=== PATIENT | male | born 1975 | race Caucasian/White ===

== ENCOUNTER 2021-10-27 16:19 | Emergency (ER) | payer BC, SELFPAY ==
[2021-10-27 16:20] VITALS: BP 174/117; PULSE 93; RESP 16; TEMP 36.1; O2SAT 98; BMI 38.7
--- NOTE | 2021-10-27 16:27 | NURSING ---
NO OLD EKGS
--- NOTE | 2021-10-27 16:59 | EKG12_ITS ---
Test Reason : CP Blood Pressure : / mmHG Vent. Rate : 093 BPM Atrial Rate : 093 BPM P-R Int : 150 ms QRS Dur : 082 ms QT Int : 350 ms P-R-T Axes : 016 025 136 degrees QTc Int : 435 ms Normal sinus rhythm Normal ECG Confirmed by BRANDO CAMPOS, KIM ([id number]), editor publications [employer] ([id number]) on 10/29/2021 8:23:21 AM Referred By: VIRGINIE Confirmed By:REJI MICHAELS MD
[2021-10-27] MEDS: Aspirin 81 MG TAB.CHEW 324 MG PO (17:06)
--- NOTE | 2021-10-27 17:25 | RAD_ITS ---
STUDY: AP PORTABLE UPRIGHT CHEST OF 1725 HOURS ON 10/27/2021 REASON FOR EXAM: 45-year-old male with chest pain. TECHNIQUE: A single view portable AP upright chest x-ray was performed per protocol. COMPARISON: 11/21/2012. FINDINGS: Normal osseous structures. Left ventricular cardiac configuration without cardiomegaly or heart failure. No pulmonary infiltrates, atelectasis, effusion, pulmonary mass lesions. Normal osseous structures. No interval change since previous study of 11/21/2012. RAD/Chest 1 View (Portable) IMPRESSION: 1. No interval change since previous study of 11/12/1912. 2. Left ventricular cardiac configuration without cardiomegaly or heart failure. 3. No other evidence of active cardiopulmonary disease. Electronically Signed: Segun Roy MD at 17:52 EDT ,
[2021-10-27 17:26] LABS: Absolute Lymphocyte Count 2.64 X10^3/uL (0.83-4.51); Absolute Neutrophil Count 8.6 X10^3/uL (2.0-7.7); Basophil# 0.07 X10^3/uL; Basophil% 0.6 % (0-1); Eosinophil# 0.24 X10^3/uL; Eosinophils% 1.9 % (0-5); Hemoglobin 17.6 g/dL (13.0-16.5); Lymphocyte # 2.64 X10^3/ul (0.83-4.51); Lymphocyte % 21.3 % (19-41); Mean Corp Hgb Conc 34.5 g/dL (32-36); Mean Corpuscular Hgb 29.5 pg (27.0-32.0); Mean Corpuscular Volume 85.6 fL (80-94); Monocyte# 0.83 X10^3/uL; Monocyte% 6.7 % (0-10); NRBC Flagged by Analyzer 0 % (0-5); Neutrophil # 8.57 X10^3/uL (2.7-7.7); Platelet Count 252 K/mm3 (150-450); RBC Distribution Width CV 14.2 % (11.6-14.6); RBC Distribution Width SD 44.2 fl (35.1-43.9); Red Blood Count 5.96 M/mm3 (4.6-6.2); White Blood Count 12.4 K/mm3 (4.4-11.0)
[2021-10-27 17:37] VITALS: BP 156/114; PULSE 93
[2021-10-27] MEDS: Nitroglycerin SL (ED/IMG/CATH) 0.4 MG TABLET SL (17:37)
[2021-10-27 17:43] LABS: Anion Gap 4 (5-15); BUN 10 mg/dL (7-18); BUN/Creat Ratio 8.6 RATIO (10-20); Calcium,Total 9.1 mg/dL (8.5-10.1); Chloride 110 mmol/L (98-107); Creatinine, Serum 1.16 mg/dL (0.70-1.30); EST Glomerular Filtration Rate 72 mL/min (>60); Est Glom Filt Rate - Afr Amer 88 mL/min (>60); Estimated Creatinine Clearance 81.26 ml/min; Glucose 104 mg/dL (74-106); Potassium 3.5 mmol/L (3.5-5.1); Sodium Level 142 mmol/L (136-145); Troponin-I HS (w/2H Reflex) 5 pg/mL (3.0-78.0)
--- NOTE | 2021-10-27 17:56 | ED.VIS.CHEST ---
HPI History of Present Illness Chief Complaint: Chest Pain Informant: patient Onset/Context/Timing Onset: Days (2-3) Activity at onset: gradual and onset Timing: Continuous Quality: Positive for Burning Location: Left Chest Current Severity: Moderate Maximum Severity: Moderate Worsened By: Exertion and - (No changes with position changes); Not Worsened By Breathing Relieved By: Nothing Associated Symptoms: Positive for Dyspnea, Palpitations (Feels like heart racing at times) and - (Left shoulder and arm burning/discomfort); Negative for Nausea, Vomiting, Diaphoresis, Cough, Fever and Lightheadedness Narrative Narrative: Patient states he felt like he was having heartburn 2 or 3 days ago, the symptoms have persisted and gotten worse and he has developed a burning discomfort in his left shoulder and upper arm, in addition to trouble breathing even when he is at rest. He noticed this felt worse today while he was sitting at work and so he presents for evaluation out of concern. He does not take medications for blood pressure or anything else other than gout when he has a flareup. He sees his doctor regularly, his last visit was about 4 months ago, sometimes at pressures are elevated a little, but he has never required any medications for it. He denies any history of DVT, PE, leg pain or swelling recently, recent immobilization, long travel, or hospitalization/surgery. Denies any history of heart disease that he knows of. Patient had a negative stress echocardiogram 10 years ago. CVD Risk Factors: Negative for Hypertension, Diabetes, Hypercholesterolemia, Family History 1' </=55 and Smoking PE Risk Factors: Negative for Recent Travel/Surgery, Recent Immobilization, Prior DVT or PE, Cancer and OCP + Smoking + >/=35 PFSH PFS Medical History Gout Home Medications colchicine 0.9 mg PO PRN PRN 10/27/21 [History Last Taken Unknown] lisinopril 10 mg PO DAILY #30 tab 10/27/21 [Rx Last Taken Unknown] Allergy/AdvReac Type Severity Reaction Status Date / Time No Known Allergies Allergy Verified 10/27/21 16:24 Social History Smoking Status: Never smoker ROS ROS ED Constitutional Constitutional ED: Reports malaise; Denies chills or fever(s) Eyes Eyes: Denies change in vision or diplopia ENT ENT ED: Denies rhinorrhea or sore throat Cardiovascular Cardiovascular: Reports as per HPI, chest pain and racing heartbeat; Denies orthopnea or pedal edema Respiratory/Chest Respiratory/Chest: Reports dyspnea; Denies cough, hemoptysis or orthopnea Gastrointestinal Gastrointestinal: Denies abdominal pain, diarrhea, nausea or vomiting Genitourinary Genitourinary ED: Denies dysuria or hematuria Musculoskeletal Musculoskeletal: Reports extremity pain; Denies back pain or neck pain Integumentary Denies abscess or rash Neurologic Neurologic: Denies headache(s), paresthesias or weakness Psychiatric Psychiatric: Denies anxiety or suicidal thoughts EXAM Physical Exam Const Vital Signs: 10/27/21 16:20 10/27/21 17:02 10/27/21 17:37 Temperature 97.0 F L Temperature Source Temporal Pulse Rate 93 93 Respiratory Rate 16 Blood Pressure 174/117 H 156/114 H Blood Pressure Mean 136 Pulse Ox 98 Oxygen Delivery Method Room Air Room Air 10/27/21 18:01 Temperature Temperature Source Pulse Rate 89 Respiratory Rate 14 Blood Pressure 128/109 H Blood Pressure Mean 115 Pulse Ox 98 Oxygen Delivery Method Room Air Positive well nourished, well developed and obese General Appearance ED: well developed and NAD Nutritional Appearance: obese HEENT Reports moist mucous membranes normocephalic and atraumatic Eyes PERRL and EOMs intact bilaterally Neck full ROM and supple Resp normal respiratory effort and clear to auscultation bilaterally Cardio regular rate, regular rhythm, no murmurs and no JVD Rate: tachycardic GI non-tender and non-distended Auscultation: normoactive bowel sounds Palpation: soft Back/Spine no CVA tenderness General Back: other FROM Extremity normal to inspection and no calf tenderness Extremity Narrative: Equal bilateral 2+/4 radial pulses and symmetric General Extremety ED: Negative for edema, pulses abnormal or tenderness General Extremity: Negative for edema or pulses abnormal Neuro oriented x3, CN's II-XII intact bilaterally and no sensory deficits noted Sensorium / Orientation: awake and alert Motor Exam: strength 5/5 throughout Skin no rashes or lesions noted and no wounds Heart Score History: Moderately Suspicious ECG: Normal Age: </= 45 years Risk Factors: 1 or 2 Risk Factors (Obesity) Troponin: </= Normal Limit Score: 2 MDM MDM MDM Narrative Medical decision making narrative: Patient is ambulatory in the emergency department without any significant discomfort or problems. Patient's entire work-up was unremarkable except for mild leukocytosis. His D-dimer is within normal limits ruling out pulmonary embolus as cause for the symptoms, his BNP and troponin are both normal, he has had symptoms for more than 1 day so I do not think he needs another troponin, and his EKG is unremarkable. He was given nitroglycerin, his blood pressure is much better, now 128/109, and he is feeling much better. I suspect his symptoms are related to his blood pressure, his hypertension probably causing the symptoms. I am going to place him on something and have him follow-up with his doctor as an outpatient. He is comfortable with that plan, although at discharge he states he would prefer to call his PCP and talk it over with him and keep an eye on his blood pressure at home before he starts any new medications so we gave him the lisinopril prescription as a print out. Lab Data Attestation: I reviewed the patient's lab results. Labs: Laboratory Results - last 24 hr 10/27/21 10/27/21 10/27/21 17:05 17:05 17:05 WBC 12.4 H RBC 5.96 Hgb 17.6 H Hct 51.0 MCV 85.6 MCH 29.5 MCHC 34.5 RDW Std Deviation 44.2 H RDW Coeff of Sharlene 14.2 Plt Count 252 MPV 11.0 Immature Gran % (Auto) 0.500 Neut % (Auto) 69.0 Lymph % (Auto) 21.3 [place] % (Auto) 6.7 Eos % (Auto) 1.9 Baso % (Auto) 0.6 Absolute Neuts (auto) 8.6 H Absolute Lymphs (auto) 2.64 Nucleated RBC % 0 D-Dimer Quant (PE/DVT) Cancelled Sodium 142 Potassium 3.5 Chloride 110 H Carbon Dioxide 28.0 Anion Gap 4 L BUN 10 Creatinine 1.16 Estim Creat Clear Calc 81.26 Est GFR (MDRD) Af Amer 88 Est GFR (MDRD) Non-Af 72 BUN/Creatinine Ratio 8.6 L Glucose 104 Calcium 9.1 Troponin I High Sens 5 B-Natriuretic Peptide 10/27/21 10/27/21 17:05 18:15 WBC RBC Hgb Hct MCV MCH MCHC RDW Std Deviation RDW Coeff of Sharlene Plt Count MPV Immature Gran % (Auto) Neut % (Auto) Lymph % (Auto) [place] % (Auto) Eos % (Auto) Baso % (Auto) Absolute Neuts (auto) Absolute Lymphs (auto) Nucleated RBC % D-Dimer Quant (PE/DVT) < 0.27 L Sodium Potassium Chloride Carbon Dioxide Anion Gap BUN Creatinine Estim Creat Clear Calc Est GFR (MDRD) Af Amer Est GFR (MDRD) Non-Af BUN/Creatinine Ratio Glucose Calcium Troponin I High Sens B-Natriuretic Peptide 2.0 Radiography Chest X-Ray - ED: 1 View, Read by ED Physician and No Acute Disease Diagnostic Testing: Clinical Impression(s) from Imaging Studies Chest X-Ray 10/27/21 17:25 IMPRESSION: 1. No interval change since previous study of 11/12/1912. 2. Left ventricular cardiac configuration without cardiomegaly or heart failure. 3. No other evidence of active cardiopulmonary disease. Electronically Signed: Segun Roy MD at 17:52 EDT , Rhythm Strip Rhythm Strip: Sinus Tach Rate: 105 Ectopy: None EKG Initial EKG: Attestation: I personally reviewed and interpreted this EKG as follows: Interpretation: Sinus Rhythm (93) and No Acute Injury Pattern Comments: Normal EKG including axis Prior: No Prior Discharge Plan Triage Chief Complaint: Chest Pain ED Provider: Sj Banerjee Dx/Rx/DC Orders Clinical Impression: Accelerated hypertension, Atypical chest pain, Dyspnea Instructions: ED Hypertension, To Be Confirmed Prescriptions: New lisinopril 10 mg tablet 10 mg PO DAILY Qty: 30 RF: 0 No Action colchicine 0.6 mg tablet 0.9 mg PO PRN PRN (Reason: Pain) RF: 0 Primary Care Provider: Mason Iyer Referrals: Mason Iyer MD [Primary Care Provider] - 3-5 Days (call for appt; after weekend would be OK) Disposition Disposition: Home, Self Care
[2021-10-27 18:01] VITALS: BP 128/109; PULSE 89; RESP 14; O2SAT 98
[2021-10-27 18:49] LABS: D-Dimer Quantitative (DVT/PE) < 0.27 FEU/ug/m (0.27-0.49)
[2021-10-27 19:15] LABS: Reflex Troponin-HS? (from REC) Y
--- NOTE | 2021-10-27 19:19 | ED.RN ---
per dr. velásquez cancel repeat troponin
[2021-10-27 19:39] VITALS: BP 149/97; PULSE 88; RESP 14; TEMP 36.9; O2SAT 98
== END 2021-10-27 19:40 | disposition home or self-care (01) ==
PROVIDERS: Emergency Provider Emergency Medicine; PCP Family Medicine; Visit Provider Emergency Medicine
DX: I10 Essential (primary) hypertension (principal); R07.89 Other chest pain; R00.2 Palpitations; R06.00 Dyspnea, unspecified; M10.9 Gout, unspecified; E66.9 Obesity, unspecified; Z79.899 Other long term (current) drug therapy
CPT/HCPCS: 71045; 80048; 83880; 84484; 85025; 85379; 93005; 99285; A4216